=== PATIENT | female | born 2000 | race African-American/Black ===

== ENCOUNTER 2022-07-08 16:11 | Outpatient (CLI) | payer OTHER ==
--- NOTE | 2022-07-08 17:58 | Ultrasound Report ---
PROCEDURE: OB First Trimester w/TV INDICATIONS: POSITIVE PREGANCY TEST OUTSIDE/PRIOR DATING DATA: Last menstrual period (LMP): 04/20/2022,. LMP-based estimated date of delivery (JUAN JOSÉ): 01/25/2023. First dating scan (date and location): Current study, 07/08/2022. Estimated date of delivery (JUAN JOSÉ) from first dating scan: 01/22/2023. TECHNIQUE: Real-time scanning was performed of the fetus and maternal pelvic organs, with image documentation. Endovaginal scanning was also performed to better visualize the fetus and maternal ovaries. COMPARISON: None FINDINGS: Anteverted and anteflexed uterus contains a fundal gestational sac. The cervix is closed a nd measures 4.1 cm in length. There is no subchorionic hemorrhage. Maternal ovaries are normal. Embryo: Mean gestational sac diameter is 4.89 cm corresponding to a 10 week 4 day gestation. Average crown-rump length of the single fetus is 5.03 cm corresponding to an 11 week 5 day gestation. There is detectable cardiac activity at a rate of 157 bpm. IMPRESSION: 1. Single living intrauterine with a gestational age of 11 weeks 5 days and sonographic est imated due date of 01/22/2023. This is in good agreement with the clinically assigned gestational age . Reviewed by: Tawnya Polanco MD on 07/08/2022 5:56 PM PDT Approved by: Tawnya Polanco MD on 07/08/2022 5:56 PM PDT Station ID: [id number]
== END 2022-07-08 16:12 | disposition home or self-care (01) ==
LOC: DI 16:11
PROVIDERS: ATTEND Obstetrics & Gynecology
DX: Z34.91 Encounter for supervision of normal pregnancy, unspecified, first trimester (principal)

== ENCOUNTER 2022-08-12 16:25 | Outpatient (CLI) | payer OTHER ==
[2022-08-15 19:07] LABS: AFP MOM 1.15 (.); AFP VALUE 39.8 ng/mL (.); DIA MOM 0.54 (.); DIA VALUE 73.72 pg/mL (.); DSR (BY AGE) 1 IN 1133 (.); DSR (SECOND TRIMESTER) 1 IN 10000 (.); GEST. AGE ON COLLECTION DATE 16.3 WEEKS (.); HCG MOM 0.41 (.); HCG VALUE 14213 mIU/mL (.); INSULIN DEP DIABETES No (.); MATERNAL AGE AT EDD 21.8 yr (.); MULTIPLE GESTATION No (.); OPEN SPINA BIFIDA RISK 1 IN 10000 (.); RACE Black (.); RESULTS Report (.); TEST RESULTS *Screen Negative* (.); TRISOMY 18 RISK Not increased (.); UE3 MOM 0.64 (.); WEIGHT 186 lbs (.)
== END 2022-08-12 16:26 | disposition home or self-care (01) ==
LOC: LAB 16:25
PROVIDERS: ATTEND Obstetrics & Gynecology
DX: Z34.90 Encounter for supervision of normal pregnancy, unspecified, unspecified trimester (principal)
CPT/HCPCS: 81511

== ENCOUNTER 2022-09-07 16:00 | Outpatient (CLI) | payer OTHER ==
--- NOTE | 2022-09-08 11:09 | Ultrasound Report ---
PROCEDURE: OB Detailed Eval INDICATIONS: SUPERVISION OF OUTSIDE/PRIOR DATING DATA: Last menstrual period (LMP): 04/20/2022. LMP-based estimated date of delivery (JUAN JOSÉ): 01/25/2023. First dating scan (date and location): 07/08/2022. Estimated date of delivery (JUAN JOSÉ) from first dating scan: 01/25/2023. TECHNIQUE: Real-time scanning was performed of the fetus, with image documentation and biometric measurements. Endovaginal scanning: Not performed COMPARISON: 07/08/2022 FINDINGS: Technically challenging exam due to positioning and patient body habitus. General: A single living intrauterine gestation is present. Presentation: Vertex Placenta: Placental position is posterior, without previa. Amniotic fluid index: 10.2 cm, within normal limits for gestational age. heart rate: 152 beats per minute. Maternal cervical canal: 3.2 cm long; normal length is 2.5 cm or more. biometrics: Biparietal diameter: 4.6 cm 19 weeks 6 days Head circumference: 18.5 cm 20 weeks 6 days Abdominal circumference: 13.5 cm 19 weeks 0 days Femur length: 3.0 cm 19 weeks 2 days Estimated gestational age from initial scan: 20 weeks 0 days Composite gestational age from present scan: 19 weeks 4 days Estimated weight and percentile: 286 g, 14th percentile Measurement variability in biometric dating: +/- 10 days from 12-20 weeks gestation, +/- 2 weeks from 20-30 weeks gestation, +/- 3 weeks at 30 weeks gestation or later. Anatomic survey: Neuro: Ventricles are normal at less than 10 mm. Cisterna magna is normal at 3-11 mm. Cerebellum i s normal in size and morphology. Nuchal skin fold: Not well visualized Face: Nose and lips and orbits not well visualized. Unremarkable profile. Spine: Suboptimally visualized. Heart: 4-chambered heart is present, with normal ventricular outflow tracts. Diaphragm: Diaphragm is intact. Stomach: Left-sided stomach is present. Kidneys: No hydronephrosis. Normal is less than 5 mm in 2nd trimester, less than 7 mm in 3rd trimester. Cord: 3 vessel cord has orthotopic insertion. Bladder: Normal in size. Extremities: Upper extremities not well visualized. Lower extremities are unremarkable. IMPRESSION: 1. Single living intrauterine in vertex presentation. 2. Technically challenging exam due to position and maternal body habitus. 3. nose, lips, orbits, spine, and upper extremities are not well visualized or suboptimally vis ualized. Attention on follow-up is recommended. The nuchal fold was also not well visualized. Reviewed by: Wilman Hinds MD on 09/08/2022 11:08 AM PDT Approved by: Wilman Hinds MD on 09/08/2022 11:08 AM PDT Station ID: [id number]
== END 2022-09-07 16:01 | disposition home or self-care (01) ==
LOC: DI 16:00
PROVIDERS: ATTEND Obstetrics & Gynecology
DX: Z34.92 Encounter for supervision of normal pregnancy, unspecified, second trimester (principal)

== ENCOUNTER 2022-09-12 12:05 | Outpatient (CLI) | payer OTHER ==
--- NOTE | 2022-09-12 20:41 | Ultrasound Report ---
PROCEDURE: OB F/U or Repeat INDICATIONS: SUPERVISION OF OUTSIDE/PRIOR DATING DATA: Last menstrual period (LMP): 04/20/2022. LMP-based estimated date of delivery (JUAN JOSÉ): 01/25/2023. First dating scan (date and location): 07/08/2022. Estimated date of delivery (JUAN JOSÉ) from first dating scan: 01/25/2023. TECHNIQUE: Real-time scanning was performed of the fetus, with image documentation and biometric measurements. Endovaginal scanning: Not performed. COMPARISON: 09/07/2022 FINDINGS: General: A single living intrauterine gestation is present. Presentation: Variable Placenta: Placental position is posterior, without previa. Amniotic fluid index: 9.4 cm, which falls within the 4.9 percentile for gestational age. heart rate: 145 beats per minute. Maternal cervical canal: Closed and visibly adequate . biometrics: Estimated gestational age of approximately 20 weeks and 5 days based off previous imaging. Other: intracranial structures, lips, orbit, face and facial profile, cardiac structures, abdom inal structures, pelvic structures, and extremities appear within normal limits. IMPRESSION: Single living intrauterine gestation with estimated gestational age of approximately 20 weeks and 5 d ays. Four-quadrant SANYA measures 5.4 cm which correlates with the 4.9th percentile for gestational age. Rec ommend close clinical surveillance with repeat imaging as needed. Follow-up scan of anatomic structures appear unremarkable. Reviewed by: Markel Jackson MD on 09/12/2022 7:40 PM MELISSA Approved by: Markel Jackson MD on 09/12/2022 7:40 PM MELISSA Station ID: [id number]
== END 2022-09-12 12:06 | disposition home or self-care (01) ==
LOC: DI 12:05
PROVIDERS: ATTEND Obstetrics & Gynecology
DX: Z34.92 Encounter for supervision of normal pregnancy, unspecified, second trimester (principal)

== ENCOUNTER 2022-10-02 12:35 | Emergency (ER) | payer OTHER ==
[2022-10-02 12:54] VITALS: BP 139/79
[2022-10-02] MEDS ORDERED: oxyCODONE 5 MG TABLET PO STA (13:05)
[2022-10-02 13:14] LABS: BILIRUBIN,URINE NEGATIVE (NEGATIVE); GLUCOSE, URINE (UA) NEGATIVE (NEGATIVE); KETONES,URINE (UA) NEGATIVE (NEGATIVE); LEUKOCYTE ESTERASE, URINE NEGATIVE (NEGATIVE); NITRITE,URINE NEGATIVE (NEGATIVE); OCCULT BLOOD,URINE NEGATIVE (NEGATIVE); PH,URINE 8.5 PH (5.0-7.5); PROTEIN,URINE NEGATIVE (NEGATIVE); UROBILINOGEN,URINE 1 (NORMAL) E.U./dL (NORMAL)
[2022-10-02 13:17] LABS: CLARITY,URINE SL. CLOUDY (CLEAR)
[2022-10-02 13:24] LABS: AMORPHOUS SEDIMENT,UR Moderate /LPF; BACTERIA,URINE Few /HPF (None Seen); RBC,URINE None Seen /HPF (0-5); SQUAMOUS EPITHELIAL CELL,UR FEW Squamous (<= Few); WBC,URINE 0-3 /HPF (0-5)
[2022-10-02 13:47] LABS: BASOPHILS % (AUTO) 0.5 %; EOSINOPHILS # (AUTO) 0.1 10^3/uL (0.0-0.7); EOSINOPHILS % (AUTO) 1.5 %; HCT - HEMATOCRIT 33.3 % (37.0-47.0); HGB - HEMOGLOBIN 10.7 g/dL (12.0-16.0); LYMPHOCYTES # (AUTO) 1.6 10^3/uL (1.5-3.5); LYMPHOCYTES % (AUTO) 18.9 %; MEAN CORPUSCULAR HEMOGLOBIN 27.2 pg (27.0-31.0); MEAN CORPUSCULAR HGB CONC 32.1 g/dL (32.0-36.0); MEAN CORPUSCULAR VOLUME 84.5 fL (81.0-99.0); MEAN PLATELET VOLUME 11.2 fL (7.9-10.8); MONOCYTES % (AUTO) 11.6 %; NEUTROPHILS # (AUTO) 5.7 10^3/uL (1.5-6.6); NEUTROPHILS % (AUTO) 66.8 %; PLT - PLATELET COUNT 247 10^3/uL (130-450); RED BLOOD COUNT 3.94 10^6/uL (4.20-5.40); RED CELL DISTRIBUTION WIDTH 13.7 % (12.0-15.0); WHITE BLOOD COUNT 8.6 x10^3/uL (4.8-10.8)
[2022-10-02 14:03] LABS: ALBUMIN 3.8 g/dL (3.2-5.5); ALBUMIN/GLOBULIN RATIO 1.2 (1.0-2.2); BILIRUBIN,TOTAL 0.4 mg/dL (0.2-1.0); CALCIUM 9.4 mg/dL (8.5-10.3); CREATININE 0.6 mg/dL (0.6-1.3); POTASSIUM 3.7 mmol/L (3.5-4.5)
--- NOTE | 2022-10-02 14:12 | ED Physician Documentation ---
History of Present Illness - Stated complaint Stated Complaint: LRQ BACK PX - Chief complaint Chief Complaint: Abd Pain - History obtained from History obtained from: Patient - Additonal information Additional information: 30-year-old female at 5 months gestational age presents by private vehicle for right-sided flank pain for 4 days. Pain is sharp, intermittent, does not radiate. She states she is never felt pain like this before. Denies dysuria, hematuria, contractions, vaginal bleeding, loss of fluids. States she has had no complications with this . Review of Systems Constitutional: denies: Fever, Chills Cardiac: denies: Chest pain / pressure, Palpitations, Calf pain GI: denies: Abdominal Pain, Nausea, Vomiting Musculoskeletal: denies: Neck pain, Back pain, Extremity pain Neurologic: denies: Generalized weakness, Focal weakness, Numbness PD PAST MEDICAL HISTORY - Present Medications Home Medications: Ambulatory Orders Medication Instructions Recorded Confirmed No Known Home Medications 10/02/22 10/02/22 - Allergies Allergies/Adverse Reactions: Allergies Allergy/AdvReac Type Severity Reaction Status Date / Time No Known Drug Allergies Allergy Verified 10/02/22 12:46 PD ED PE NORMAL - Vitals Vital signs reviewed: Yes - General General: Alert and oriented X 3, No acute distress, Well developed/nourished - HEENT HEENT: Atraumatic - Neck Neck: Supple, no meningeal sign - Cardiac Cardiac: RRR, No murmur, Strong equal pulses - Abdomen Abdomen: Soft, Non tender, Non distended, Other (appropriate for gestational age) - Back Back: Other (R sided paraspinal tenderness) - Derm Derm: Normal color, Warm and dry, No rash - Extremities Extremities: No deformity, No tenderness to palpate, Normal ROM s pain - Neuro Neuro: Alert and oriented X 3, 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, No motor deficit, Normal speech - Psych Psych: Normal mood, Normal affect Results - Vitals Vitals: Oxygen O2 Source Room air - Labs Labs: Laboratory Tests 10/02/22 10/02/22 10/02/22 13:05 13:40 13:40 WBC 8.6 RBC 3.94 L Hgb 10.7 L Hct 33.3 L MCV 84.5 MCH 27.2 MCHC 32.1 RDW 13.7 Plt Count 247 MPV 11.2 H Neut # (Auto) 5.7 Lymph # (Auto) 1.6 Turner # (Auto) 1.0 Eos # (Auto) 0.1 Baso # (Auto) 0.0 Absolute Nucleated RBC 0.00 Nucleated RBC % 0.0 Sodium 137 Potassium 3.7 Chloride 108 Carbon Dioxide 25 Anion Gap 4.0 L BUN 7 Creatinine 0.6 Estimated GFR (MDRD) 153 Glucose 77 Calcium 9.4 Total Bilirubin 0.4 AST 12 ALT 13 Alkaline Phosphatase 65 Total Protein 7.0 Albumin 3.8 Globulin 3.2 Albumin/Globulin Ratio 1.2 Urine Color YELLOW Urine Clarity SL. CLOUDY Urine pH 8.5 H Ur Specific [place] 1.015 Urine Protein NEGATIVE Urine Glucose (UA) NEGATIVE Urine Ketones NEGATIVE Urine Occult Blood NEGATIVE Urine Nitrite NEGATIVE Urine Bilirubin NEGATIVE Urine Urobilinogen 1 (NORMAL) Ur Leukocyte Esterase NEGATIVE Urine RBC None Seen Urine WBC 0-3 Ur Squamous Epith Cells FEW Squamous Amorphous Sediment Moderate Urine Bacteria Few Ur Microscopic Review INDICATED Urine Culture Comments NOT INDICATED PD Medical Decision Making - ED course Complexity details: reviewed results, re-evaluated patient, considered differential, d/w patient, d/w family ED course: Well-appearing patient with right-sided back/flank pain. Cannot obtain CT scan due to patient . Will obtain basic labs, retroperitoneal ultrasound, urinalysis. Patient declined medications offered for pain. Laboratory work is reviewed, unremarkable. Urinalysis shows no evidence of UTI or blood. Retroperitoneal ultrasound shows no abnormalities within the kidneys, heart tones 140s. Patient reassessed, resting comfortably in ED bed. Informed patient and partner at bedside of all lab and imaging results, counseled I do not know the exact cause of her flank pain but it does not appear to be a stone, and baby seems to be doing well. 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 Departure - Departure Disposition: 01 Home, Self Care Clinical Impression: Back pain Condition: Stable Instructions: ED Neck Back Pain General Forms: PCP List Discharge Date/Time: 10/02/22 14:23
--- NOTE | 2022-10-02 14:43 | Ultrasound Report ---
PROCEDURE: Retroperitoneal INDICATIONS: R FLANK PAIN, 5 MO TECHNIQUE: Real-time scanning was performed of the retroperitoneal organs, with image documentation. COMPARISON: None. FINDINGS: Kidneys: Kidneys are normal in size. Right kidney measures 10.3 cm long; left kidney measures 10.4 cm long. Right renal cortical thickness is 0.9 cm; left renal cortical thickness is 1.2 cm. No abdoul d masses, hydronephrosis, or nephrolithiasis. Bladder: Not evaluated. Miscellaneous: No free abdominal fluid. A living intrauterine is noted, with a heart rate of 141 bpm IMPRESSION: 1. Living intrauterine . 2. Unremarkable kidneys. No hydronephrosis. No stones. Reviewed by: Isidro Willoughby MD on 10/02/2022 2:41 PM PDT Approved by: Isidro Willoughby MD on 10/02/2022 2:41 PM PDT Station ID: [id number]
== END 2022-10-02 14:23 | disposition home or self-care (01) ==
LOC: ED 12:35
DX: O99.891 Other specified diseases and conditions complicating pregnancy (principal); R10.9 Unspecified abdominal pain; Z3A.00 Weeks of gestation of pregnancy not specified
CPT/HCPCS: 36415; 80053; 81001; 81003; 85025; 87086; 99283; 99284

== ENCOUNTER 2022-10-05 08:57 | Outpatient (CLI) | payer OTHER ==
[2022-10-05 10:08] LABS: HCT - HEMATOCRIT 32.4 % (37.0-47.0); HGB - HEMOGLOBIN 10.4 g/dL (12.0-16.0); MEAN CORPUSCULAR HGB CONC 32.1 g/dL (32.0-36.0); MEAN CORPUSCULAR VOLUME 84.2 fL (81.0-99.0); MEAN PLATELET VOLUME 10.8 fL (7.9-10.8); RED BLOOD COUNT 3.85 10^6/uL (4.20-5.40); RED CELL DISTRIBUTION WIDTH 13.4 % (12.0-15.0); WHITE BLOOD COUNT 9.4 x10^3/uL (4.8-10.8)
== END 2022-10-05 08:58 | disposition home or self-care (01) ==
LOC: LAB 08:57
PROVIDERS: ATTEND Obstetrics & Gynecology
DX: Z34.90 Encounter for supervision of normal pregnancy, unspecified, unspecified trimester (principal)
CPT/HCPCS: 36415; 82950; 85027

== ENCOUNTER 2022-10-08 08:00 | Outpatient (CLI) | payer OTHER ==
[2022-10-08 15:47] LABS: BILIRUBIN,URINE NEGATIVE (NEGATIVE); GLUCOSE, URINE (UA) NEGATIVE (NEGATIVE); KETONES,URINE (UA) NEGATIVE (NEGATIVE); LEUKOCYTE ESTERASE, URINE NEGATIVE (NEGATIVE); NITRITE,URINE NEGATIVE (NEGATIVE); OCCULT BLOOD,URINE NEGATIVE (NEGATIVE); PH,URINE 7.5 PH (5.0-7.5); PROTEIN,URINE NEGATIVE (NEGATIVE); UROBILINOGEN,URINE 0.2 (NORMAL) E.U./dL (NORMAL)
[2022-10-08 15:48] LABS: CLARITY,URINE CLEAR (CLEAR)
[2022-10-08 16:05] LABS: BACTERIA,URINE Few /HPF (None Seen); RBC,URINE None Seen /HPF (0-5); SQUAMOUS EPITHELIAL CELL,UR FEW Squamous (<= Few); WBC,URINE 0-3 /HPF (0-5)
== END 2022-10-08 23:59 | disposition home or self-care (01) ==
LOC: LAB.WC 08:00
PROVIDERS: ATTEND Obstetrics & Gynecology
DX: R10.9 Unspecified abdominal pain (principal)
CPT/HCPCS: 81001; 87086

== ENCOUNTER 2022-11-04 16:28 | Outpatient (CLI) | payer OTHER ==
[2022-11-04 16:45] LABS: HCT - HEMATOCRIT 29.9 % (37.0-47.0); HGB - HEMOGLOBIN 9.7 g/dL (12.0-16.0); MEAN CORPUSCULAR HEMOGLOBIN 26.4 pg (27.0-31.0); MEAN CORPUSCULAR HGB CONC 32.4 g/dL (32.0-36.0); MEAN CORPUSCULAR VOLUME 81.3 fL (81.0-99.0); MEAN PLATELET VOLUME 10.8 fL (7.9-10.8); RED BLOOD COUNT 3.68 10^6/uL (4.20-5.40); RED CELL DISTRIBUTION WIDTH 12.7 % (12.0-15.0); WHITE BLOOD COUNT 10.2 x10^3/uL (4.8-10.8)
[2022-11-04 17:12] LABS: ALBUMIN 3.8 g/dL (3.2-5.5); ALBUMIN/GLOBULIN RATIO 1.2 (1.0-2.2); BILIRUBIN,TOTAL 0.3 mg/dL (0.2-1.0); CALCIUM 9.2 mg/dL (8.5-10.3); CREATININE 0.6 mg/dL (0.6-1.3); POTASSIUM 3.5 mmol/L (3.5-4.5); TOTAL PROTEIN 6.9 g/dL (6.4-8.9)
[2022-11-04 17:28] LABS: CREATININE,URINE 164.1 mg/dL; PROTEIN/CREATININE RATIO,URINE 0.1 (<=0.2)
== END 2022-11-04 16:29 | disposition home or self-care (01) ==
LOC: LAB 16:28
PROVIDERS: ATTEND Obstetrics & Gynecology
DX: R03.0 Elevated blood-pressure reading, without diagnosis of hypertension (principal)
CPT/HCPCS: 36415; 80053; 82570; 84156; 85027

== ENCOUNTER 2022-11-12 07:38 | Outpatient (CLI) | payer OTHER ==
--- NOTE | 2022-11-12 12:58 | Ultrasound Report ---
PROCEDURE: OB F/U or Repeat INDICATIONS: OBESITY, OBESITY COMPLICATING OUTSIDE/PRIOR DATING DATA: Last menstrual period (LMP): 04/20/2022. LMP-based estimated date of delivery (JUAN JOSÉ): 01/25/2023. First dating scan (date and location): 07/08/2022. Estimated date of delivery (JUAN JOSÉ) from first dating scan: 01/25/2023. The below data below was generated using the working JUAN JOSÉ of 01/25/2023 TECHNIQUE: Real-time scanning was performed of the fetus, with image documentation and biometric measurements. Endovaginal scanning: Not performed. COMPARISON: OB ultrasound 09/12/2022 FINDINGS: General: A single living intrauterine gestation is present. Presentation: Cephalic Placenta: Placental position is posterior, without previa. Amniotic fluid index: 9.9 cm, 8th percentile for gestational age. Largest vertical fluid pocket is 3.5 cm. heart rate: 145 beats per minute. Maternal cervical canal: 3.3 cm long; normal length is 2.5 cm or more. biometrics: Biparietal diameter: 7.0 cm, 28 weeks 1 day Head circumference: 26.8 cm, 29 weeks 1 day Abdominal circumference: 24.2 cm, 28 weeks 3 days Femur length: 5.3 cm, 28 weeks 2 days Estimated gestational age from initial scan: 29 weeks 3 days Composite gestational age from present scan: 28 weeks 4 days Estimated weight and percentile: 1227 g, 11th percentile Measurement variability in biometric dating: +/- 10 days from 12-20 weeks gestation, +/- 2 weeks from 20-30 weeks gestation, +/- 3 weeks at 30 weeks gestation or more. Other: Not applicable. IMPRESSION: 1.Single live intrauterine with interval growth. Estimated weight is at the 11th perc entile for gestational age. 2.Amniotic fluid index is 9.9 cm, 8th percentile for gestational age. Reviewed by: Wilman Paredes MD on 11/12/2022 12:56 PM PDT Approved by: Wilman Paredes MD on 11/12/2022 12:56 PM PDT Station ID: [id number]
== END 2022-11-12 07:39 | disposition home or self-care (01) ==
LOC: DI 07:38
PROVIDERS: ATTEND Obstetrics & Gynecology
DX: O99.213 Obesity complicating pregnancy, third trimester (principal); Z3A.28 28 weeks gestation of pregnancy

== ENCOUNTER 2022-12-24 08:00 | Outpatient (CLI) | payer OTHER ==
[2022-12-24 10:08] LABS: PROTEIN/CREATININE RATIO,URINE 0.1 (<=0.2)
== END 2022-12-24 23:59 | disposition home or self-care (01) ==
LOC: LAB.WC 08:00
PROVIDERS: ATTEND Nurse Practitioner
DX: O09.93 Supervision of high risk pregnancy, unspecified, third trimester (principal)
CPT/HCPCS: 82570; 84156

== ENCOUNTER 2022-12-24 09:00 | Outpatient (CLI) | payer OTHER ==
[2022-12-24 09:26] VITALS: O2SAT 100
[2022-12-24 10:17] LABS: BASOPHILS % (AUTO) 0.5 %; EOSINOPHILS # (AUTO) 0.1 10^3/uL (0.0-0.7); EOSINOPHILS % (AUTO) 0.8 %; HCT - HEMATOCRIT 29.8 % (37.0-47.0); HGB - HEMOGLOBIN 9.4 g/dL (12.0-16.0); LYMPHOCYTES # (AUTO) 1.6 10^3/uL (1.5-3.5); MEAN CORPUSCULAR HEMOGLOBIN 24.5 pg (27.0-31.0); MEAN CORPUSCULAR HGB CONC 31.5 g/dL (32.0-36.0); MEAN CORPUSCULAR VOLUME 77.8 fL (81.0-99.0); MEAN PLATELET VOLUME 11.2 fL (7.9-10.8); MONOCYTES # (AUTO) 0.7 10^3/uL (0.0-1.0); MONOCYTES % (AUTO) 9.4 %; PLT - PLATELET COUNT 220 10^3/uL (130-450); RED BLOOD COUNT 3.83 10^6/uL (4.20-5.40); RED CELL DISTRIBUTION WIDTH 14.8 % (12.0-15.0); WHITE BLOOD COUNT 7.5 x10^3/uL (4.8-10.8)
[2022-12-24 10:21] LABS: ALBUMIN 3.6 g/dL (3.2-5.5); ALBUMIN/GLOBULIN RATIO 1.2 (1.0-2.2); BILIRUBIN,TOTAL 0.4 mg/dL (0.2-1.0); CALCIUM 9.3 mg/dL (8.5-10.3); CREATININE 0.6 mg/dL (0.6-1.3); POTASSIUM 3.7 mmol/L (3.5-4.5); TOTAL PROTEIN 6.6 g/dL (6.4-8.9); URIC ACID 4.5 mg/dL (2.3-6.6)
[2022-12-24 10:22] VITALS: BP 107/64
--- NOTE | 2022-12-24 11:09 | PROVIDER PROGRESS NOTE ---
- HPI Chief Complaint: Hypertension/PIH (Patient is a 22-year-old presenting from the clinic at 35 weeks and 3 days for evaluation with elevated blood pressure. She denies headache, changes in vision, right upper quadrant pain. She is not on medications for hypertension. Positive movement. Denies contractions, vaginal bleed) Current : Vital Signs Temperature 98.2 F 12/24/22 09:10 Heart Rate 92 12/24/22 09:10 Respiratory Rate 17 12/24/22 09:10 Blood Pressure 135/62 H 12/24/22 09:10 O2 Saturation 100 12/24/22 09:10 Temperature 98.2 F 12/24/22 09:39 Heart Rate 103 H 12/24/22 09:19 Respiratory Rate 17 12/24/22 09:10 Blood Pressure 107/64 12/24/22 10:15 O2 Saturation 100 12/24/22 09:10 If not protocol: Oxygen Flow, liters/minute - Exam Gen: NAD Pulm: CTA bilaterally Cardiac: RRR Abdomen: Gravid, nontender Ext: no edema Neuro: 1+ DTRs, no clonus pre-eclamptic labwork within normal limits - Procedures NST Procedure: NST Procedure Start Time 16:21 Stop Time 17:02 35+3, gestational hypertension 140, moderate variability, +accels, no decels Reactive NST - Plan Plan: Patient was counseled on signs and symptoms of preeclampsia. She was counseled to return for headache, changes in vision, right upper quadrant pain, increased lower extremity edema, or any other concerns. Patient was also given labor precautions. She has follow-up as outpatient.
== END 2022-12-24 10:30 | disposition home or self-care (01) ==
LOC: WFO 09:00 → FBP 09:02 → WFO 10:30
PROVIDERS: ATTEND Obstetrics & Gynecology Obstetrics
DX: O13.3 Gestational [pregnancy-induced] hypertension without significant proteinuria, third trimester (principal); O09.93 Supervision of high risk pregnancy, unspecified, third trimester; Z3A.35 35 weeks gestation of pregnancy
CPT/HCPCS: 36415; 59025; 80053; 82570; 83615; 84156; 84550; 85025

== ENCOUNTER 2022-12-29 08:31 | Outpatient (CLI) | payer OTHER ==
--- NOTE | 2022-12-29 08:53 | PROCEDURE REPORT ---
- HPI Diagnosis/Indication for NST: Gestational Hypertension - NST Procedure NST Procedure Start Time 08:41 Stop Time 09:01 - Results and Plan Plan: Patient is a 22-year-old G1, P0 at 36 weeks 0 days gestation here for scheduled NST. NST Performed 12/29/2022 NST Read 12/29/2022 FHT: 135 bpm baseline, moderate variability, accelerations present, no deceler ations. Reactive NST [place]: Quiescent Diagnosis Gestational hypertension 36 weeks gestation Continue with twice-weekly NST.
[2022-12-29 09:01] VITALS: BP 129/75
== END 2022-12-29 09:05 | disposition home or self-care (01) ==
LOC: FBP 08:31 → DI 08:31
PROVIDERS: ATTEND Obstetrics & Gynecology
DX: O13.3 Gestational [pregnancy-induced] hypertension without significant proteinuria, third trimester (principal); O99.213 Obesity complicating pregnancy, third trimester; Z3A.36 36 weeks gestation of pregnancy
CPT/HCPCS: 59025

== ENCOUNTER 2022-12-31 08:00 | Outpatient (CLI) | payer OTHER | END 2022-12-31 23:59 | disposition home or self-care (01) | LOC: LAB.WC 08:00 | PROVIDERS: ATTEND Obstetrics & Gynecology | DX: O09.93 Supervision of high risk pregnancy, unspecified, third trimester (principal); O13.3 Gestational [pregnancy-induced] hypertension without significant proteinuria, third trimester | CPT/HCPCS: 87797 ==

== ENCOUNTER 2022-12-31 08:11 | Outpatient (CLI) | payer OTHER ==
--- NOTE | 2022-12-31 08:26 | PROCEDURE REPORT ---
- NST Procedure NST Procedure Start Time 08:41 Stop Time 09:01 - Results and Plan Plan: Patient is a 22-year-old G1, P0 at 36 weeks gestation here for scheduled NST. NST Performed 12/31/2022 NST Read 12/31/2022 FHT: 140 bpm baseline, moderate variability, accelerations present, no decelerations Reactive NST [place]: Quiescent Diagnosis 36 weeks gestation Gestational hypertension Continue with twice-weekly NST.
[2022-12-31 08:35] VITALS: BP 140/92; O2SAT 100
== END 2022-12-31 09:10 | disposition home or self-care (01) ==
LOC: WFO 08:11 → FBP 08:13 → WFO 09:10
PROVIDERS: ATTEND Obstetrics & Gynecology
DX: O13.3 Gestational [pregnancy-induced] hypertension without significant proteinuria, third trimester (principal); O99.213 Obesity complicating pregnancy, third trimester; Z3A.36 36 weeks gestation of pregnancy
CPT/HCPCS: 59025

== ENCOUNTER 2023-01-01 18:20 | Outpatient (CLI) | payer OTHER ==
--- NOTE | 2023-01-03 14:49 | Ultrasound Report ---
PROCEDURE: OB Biophysical Profile INDICATIONS: OBESITY OUTSIDE/PRIOR DATING DATA: Last menstrual period (LMP): 04/20/2022. LMP-based estimated date of delivery (JUAN JOSÉ): 01/25/2023. First dating scan (date and location): 07/08/2022, Dr. Szymanski office. Estimated date of delivery (JUAN JSOÉ) from first dating scan: 01/25/2023. TECHNIQUE: Real-time scanning was performed of the fetus, with image documentation and biometric mauricio surements. Biophysical profile was also obtained. COMPARISON: OB ultrasound dated 12/25/2022, 11/12/2022, 09/12/2022 FINDINGS: General: A single living intrauterine gestation is present. Presentation: Vertex Placenta: Placental position is anterior, without previa. Amniotic fluid index: 13.4 cm, 47.5 for gestational age. heart rate: 133 beats per minute. Maternal cervical canal: Not imaged. biometrics: Biparietal diameter: 8.8 cm, 35 weeks, 5 days. 35.5% Head circumference: 32.6 cm, 37 weeks, 0 days. 32.0% Abdominal circumference: 39.9 cm, 36 weeks 6 days. 70.2% Femur length: 6.87 cm, 35 weeks 2 days. 16.6% Estimated gestational age from initial scan: 36 weeks, 4 days Composite gestational age from present scan: 36 weeks, 2 days Estimated weight and percentile: 2912.4 g, 47.4% Measurement variability in biometric dating: +/- 10 days from 12-20 weeks gestation, +/- 2 weeks from 20-30 weeks gestation, +/- 3 weeks at 30 weeks gestation or later. Biophysical profile: Tone: 2 points. Movement: 2 points. Respiration: 0 points. Largest pocket of fluid: 2 points. Umbilical artery Doppler: 2.39, 2.21, 2.77 IMPRESSION: 1. Single live intrauterine gestation with a composite gestational age of 36 weeks, 2 days which is c oncordant with dates by initial scan. 2. Estimated weight of 47.4%. 3. 68 biophysical profile and normal umbilical artery Doppler Reviewed by: Lu Howe MD on 01/03/2023 2:48 PM PST Approved by: Lu Howe MD on 01/03/2023 2:48 PM PST Station ID: [id number]
--- NOTE | 2023-01-03 14:51 | Ultrasound Report ---
PROCEDURE: OB Biophysical Profile INDICATIONS: OBESITY OUTSIDE/PRIOR DATING DATA: Last menstrual period (LMP): 04/20/2022. LMP-based estimated date of delivery (JUAN JOSÉ): 01/25/2023. First dating scan (date and location): 07/08/2022, Dr. Szymanski office. Estimated date of delivery (JUAN JOSÉ) from first dating scan: 01/25/2023. TECHNIQUE: Real-time scanning was performed of the fetus, with image documentation and biometric mauricio surements. Biophysical profile was also obtained. COMPARISON: OB ultrasound dated 12/25/2022, 11/12/2022, 09/12/2022 FINDINGS: General: A single living intrauterine gestation is present. Presentation: Vertex Placenta: Placental position is anterior, without previa. Amniotic fluid index: 13.4 cm, 47.5 for gestational age. heart rate: 133 beats per minute. Maternal cervical canal: Not imaged. biometrics: Biparietal diameter: 8.8 cm, 35 weeks, 5 days. 35.5% Head circumference: 32.6 cm, 37 weeks, 0 days. 32.0% Abdominal circumference: 39.9 cm, 36 weeks 6 days. 70.2% Femur length: 6.87 cm, 35 weeks 2 days. 16.6% Estimated gestational age from initial scan: 36 weeks, 4 days Composite gestational age from present scan: 36 weeks, 2 days Estimated weight and percentile: 2912.4 g, 47.4% Measurement variability in biometric dating: +/- 10 days from 12-20 weeks gestation, +/- 2 weeks from 20-30 weeks gestation, +/- 3 weeks at 30 weeks gestation or later. Biophysical profile: Tone: 2 points. Movement: 2 points. Respiration: 0 points. Largest pocket of fluid: 2 points. Umbilical artery Doppler: 2.39, 2.21, 2.77 IMPRESSION: 1. Single live intrauterine gestation with a composite gestational age of 36 weeks, 2 days which is c oncordant with dates by initial scan. 2. Estimated weight of 47.4%. 3. 68 biophysical profile and normal umbilical artery Doppler Reviewed by: Lu Howe MD on 01/03/2023 2:50 PM PST Approved by: Lu Howe MD on 01/03/2023 2:50 PM PST Station ID: [id number]
== END 2023-01-01 18:21 | disposition home or self-care (01) ==
LOC: DI 18:20
PROVIDERS: ATTEND Obstetrics & Gynecology
DX: O99.213 Obesity complicating pregnancy, third trimester (principal); O13.3 Gestational [pregnancy-induced] hypertension without significant proteinuria, third trimester; Z3A.36 36 weeks gestation of pregnancy

== ENCOUNTER 2023-01-02 17:39 | Inpatient (IN) | payer OTHER ==
[2023-01-02 18:43] LABS: BASOPHILS % (AUTO) 0.4 %; EOSINOPHILS # (AUTO) 0.1 10^3/uL (0.0-0.7); EOSINOPHILS % (AUTO) 0.8 %; HCT - HEMATOCRIT 32.1 % (37.0-47.0); HGB - HEMOGLOBIN 9.8 g/dL (12.0-16.0); LYMPHOCYTES % (AUTO) 20.6 %; MEAN CORPUSCULAR HEMOGLOBIN 24.3 pg (27.0-31.0); MEAN CORPUSCULAR HGB CONC 30.5 g/dL (32.0-36.0); MEAN CORPUSCULAR VOLUME 79.7 fL (81.0-99.0); MEAN PLATELET VOLUME 11.1 fL (7.9-10.8); MONOCYTES # (AUTO) 0.9 10^3/uL (0.0-1.0); MONOCYTES % (AUTO) 9.4 %; NEUTROPHILS # (AUTO) 6.7 10^3/uL (1.5-6.6); NEUTROPHILS % (AUTO) 68.5 %; PLT - PLATELET COUNT 235 10^3/uL (130-450); RED BLOOD COUNT 4.03 10^6/uL (4.20-5.40); RED CELL DISTRIBUTION WIDTH 15.2 % (12.0-15.0); WHITE BLOOD COUNT 9.7 x10^3/uL (4.8-10.8)
[2023-01-02 18:57] LABS: CREATININE,URINE 132.8 mg/dL; PROTEIN/CREATININE RATIO,URINE 0.1 (<=0.2)
[2023-01-02 18:59] LABS: ALBUMIN 3.9 g/dL (3.2-5.5); ALBUMIN/GLOBULIN RATIO 1.1 (1.0-2.2); BILIRUBIN,TOTAL 0.4 mg/dL (0.2-1.0); CALCIUM 9.5 mg/dL (8.5-10.3); CREATININE 0.5 mg/dL (0.6-1.3); POTASSIUM 3.8 mmol/L (3.5-4.5); TOTAL PROTEIN 7.3 g/dL (6.4-8.9); URIC ACID 4.5 mg/dL (2.3-6.6)
[2023-01-02] MEDS ORDERED: LABETALOL 20 MG/4 ML SYRINGE IVP PRN ×3 (23:09)
[2023-01-02] MEDS ORDERED: SODIUM CHLORIDE FLUSH 0.9% 10 ML SYRINGE IVP PRN (23:09)
[2023-01-02] MEDS ORDERED: hydrALAZINE INJ 20 MG/ML VIAL IVP PRN ×2 (23:09)
[2023-01-02] MEDS ORDERED: NIFEdipine 10 MG CAPSULE PO PRN (23:09)
--- NOTE | 2023-01-02 23:16 | PROVIDER PROGRESS NOTE ---
- HPI Chief Complaint: Hypertension/PIH Current : Current EDU 01/25/23 Gestation 36 Weeks and 5 Days 1 Para 0 Vital Signs Temperature 97.9 F 01/02/23 17:53 Heart Rate 91 01/02/23 17:53 Respiratory Rate 16 01/02/23 17:53 Blood Pressure 151/85 H 01/02/23 17:53 Temperature 97.9 F 01/02/23 17:53 Heart Rate 97 01/02/23 19:59 Respiratory Rate 16 01/02/23 17:53 Blood Pressure 132/72 H 01/02/23 19:59 O2 Saturation If not protocol: Oxygen Flow, liters/minute - Exam Pt presented because she "didn't feel right" had elevated BP x 1 in triage and h/o gestational HTN wherein she frequently has elevated BP in clinic, and are normal when she is sent to the hospital / does NST. she also checks her BP at home -- usually it is below 140 systolic and today have been "in the 140s" - Procedures OB Procedure Performed: NST NST Procedure: NST Procedure Start Date 01/02/23 Start Time 17:54 Stop Time 18:25 Vibroacoustic Stimulation Used No Patient States Movement Yes Service Date of procedure: 01/02/23 Procedure Details: NST: 140 mod alicia + A cells no D cells, reactive. Findings: Pt had one elevated BP on presentation and then wnl. FWB - cat 1 will observe her as she also reports that her BP at home are more elevated today than they had been in the past, and she "felt off" will collect 24h urine labs today wnl - Plan Plan: observe for labile BP and 24h urine if severe BP or SxS preEclampsia, will move towards IOL.
[2023-01-02] MEDS ORDERED: SODIUM CHLORIDE FLUSH 0.9% 10 ML SYRINGE IVP SCH (23:45)
[2023-01-03 07:57] VITALS: O2SAT 100
--- NOTE | 2023-01-03 12:55 | HISTORY & PHYSICAL EXAMINATION ---
Admit History - Visit Reason Visit Reason: Other - : 1 Parity: 0 Premature: 0 Ectopic: 0 : 0 Care: positive: [facility] Risk/History: positive: induced HTN Complications This : positive: induced HTN Smoking Status: Never smoker - Mother's Labs Mother's Blood Type: positive: A Mother's RH: positive: Positive GBS: positive: Group B Step Negative - Other Maternal History Other Maternal History: LMP: 04/20/22 JUAN JOSÉ by LMP: 01/25/23 US: 01/22/2023 Final JUAN JOSÉ: 01/25/2023 Pre- Weight:192.6 BMI: 35.35 G1 FOB: Prashanth, in the [place], sea duty, not at risk of deployment for some months her mom (and soon his mom) is here and staying until april. Problems: 1Obesity Elevated blood pressure: Elevated at 11 weeks. Again at 28 and 34 weeks. No symptoms of PreE. Labs normal. BP non-severe. 37 to 39 week induction, depending on labs, bps. not on aspirin. Not on meds. Anemia: Recent H/H 9.7/29.9. ferritin 5. last 33% Blood type: A+ Antibody: negative CBC: PLT 27.9 HCT 37.3 HGB 12.3 RUB: immune VZV: immune HBsAg: negative HepC: N-R RPR/AB-EIA: N-R HIV: N-R PAP: never GC/CT: obtained 07/10/2022 negative HSV: denies self and parter Genetic testin/14 QUAD- NEGATIVE Covid: 1st set Flu: 11/04/2022 FAS: 09/12 Placenta: Posterior Cord: 3vessel SANYA: 10.2cm EFW: 286g/ 14th%tile 50gm OGCT: 103 TDAP:11/04/2022 Breast Pump:11/04 3rd .4/32.4 PLT 241 11/04 CBC 9.7/29.9 plt 269 ULS 11/12/22 baby 11th%ile, SANYA 9 biophysical profile 12/25 SANYA 9.9. GBS: negative PMH: denies PSH: denies POB: G1 PGYN: no h/o abnormal pap no h/o STDs no h/o problems with ovaries or uterus Meds: PNV, All: NKDA Soc: neg x3, lives with her FOB in the [place] and her mom is visiting. Fam: unremarkable Elevated BP, though none in severe range. NAD Conjunctiva pink, pale sclera +S1, S2, CTAB, no increased work of breathing Abd soft, NT, ND, visibly gravid at term EFM: 140mod alicia + A cells no D cells, reactive [place]: rare ctx Cx: deferred. Ext: neg CCE - HPI Current EDU 01/25/23 Gestation 36 Weeks and 6 Days 1 Para 0 Vital Signs Temperature 97.9 F 01/02/23 17:53 Heart Rate 91 01/02/23 17:53 Respiratory Rate 16 01/02/23 17:53 Blood Pressure 151/85 H 01/02/23 17:53 Temperature 98.6 F 01/03/23 07:53 Heart Rate 100 01/03/23 10:30 Respiratory Rate 17 01/03/23 10:30 Blood Pressure 137/75 H 01/03/23 10:30 O2 Saturation 100 01/03/23 10:30 If not protocol: Oxygen Flow, liters/minute - NST Procedure NST Procedure Start Date 01/03/23 Start Time 11:00 Stop Time 11:20 Vibroacoustic Stimulation Used No Patient States Movement Yes Meds/Allgy - Home Medications Home Medications: Ambulatory Orders Medication Instructions Recorded Confirmed No Known Home Medications 10/02/22 10/02/22 - Allergies Allergies/Adverse Reactions: Allergies Allergy/AdvReac Type Severity Reaction Status Date / Time No Known Drug Allergies Allergy Verified 10/02/22 12:46 Physical - Abdominal Exam Vital Signs: Temp Pulse Resp BP Pulse Ox O2 Flow Rate 98.6 F 100 17 137/75 H 100 01/03/23 07:53 01/03/23 10:30 01/03/23 10:30 01/03/23 10:30 01/03/23 10:30 Plan for Labor - Plan For Labor I expect patient to be DC'd or transferred within 96 hours.: No Plan for Labor: cHTN / gHTN -- f/u 24h urine -- if >300, will begin IOL with miso -- if <300, will begin IOL with miso at 37w, which occurs at midnight tonight FWB -- cat 1, continue NSTs until IOL Admit with routine admission orders at midnight and, GBS negative
[2023-01-03] MEDS ORDERED: OXYTOCIN 10 UNIT/ML VIAL IM PRN (13:54)
[2023-01-03] MEDS ORDERED: TRANEXAMIC ACID IN NACL 1,000 MG/100 ML BAG IV PRN (13:54)
[2023-01-03] MEDS ORDERED: miSOPROStoL 200 MCG TABLET BC PRN (13:54)
[2023-01-03] MEDS ORDERED: OXYTOCIN/SODIUM CHLORIDE 500 ML IV PRN (13:54)
[2023-01-03] MEDS ORDERED: CARBOPROST TROMETHAMINE 250 MCG/ML AMP IM PRN (13:54)
[2023-01-03] MEDS ORDERED: SODIUM CHLORIDE FLUSH 0.9% 10 ML SYRINGE IVP PRN (13:54)
[2023-01-03] MEDS ORDERED: miSOPROStoL 200 MCG TABLET PR PRN (13:54)
[2023-01-03] MEDS ORDERED: fentaNYL 100 MCG/2 ML VIAL IVP PRN (13:54)
[2023-01-03] MEDS ORDERED: METHYLERGONOVINE 0.2 MG/ML VIAL IM PRN (13:54)
[2023-01-03] MEDS ORDERED: TERBUTALINE 1 MG/ML VIAL SUBQ PRN (13:54)
[2023-01-03] MEDS ORDERED: lidocaine 1% 20 ML MDV ID PRN (13:54)
[2023-01-03] MEDS ORDERED: SODIUM CHLORIDE FLUSH 0.9% 10 ML SYRINGE IVP SCH (14:00)
[2023-01-03 18:45] LABS: TOTAL PROTEIN,URINE TIMED 12 mg/dL
[2023-01-03 19:01] LABS: TOTAL PROTEIN 24HR,URINE 180 mg/24hr (40-150); TOTAL VOLUME 24HRS,URINE 1500 mL
[2023-01-04] MEDS ORDERED: miSOPROStoL 100 MCG TABLET VG SCH
[2023-01-04] MEDS: miSOPROStoL 100 MCG TABLET BC SCH ×5 (00:31→18:10)
--- NOTE | 2023-01-04 19:20 | PROVIDER PROGRESS NOTE ---
Labor Progress Note - Uterine Monitoring Uterine Monitoring Mode: positive: External toco : irregular Contraction Intensity: positive: Mild Uterine Resting Tone: positive: Soft - Monitoring Monitor Mode: positive: External ultrasound Heart Rate Variability: positive: Moderate (6-25 bmp) Accelerations: positive: Present, 15x15, Present with movement Decelerations: positive: None Strip Review: positive: Category I - Vaginal Exam Dilation (in cm): 3 Effacement (%): 80 Station: -2 Cervical Position: Midposition - Labor Progress Note Labor Progress Note/Additional Text: Patient seen and examined at 5 pm. still pretty comfortable. really does not want an epidural or pitocin. no headache. no nausea or vomiting. no abdominal pain. A/P term at 37 weeks. htn being induced. bps were good and then after I saw patient were up to 150s/80s. I talked with patient about pitocin and recommended that we start that and then she agreed but then did not feel comfortable with that and wanted to have another miso instead. that was placed around 5 pm and I will reassess her at 9 pm and go from there.
[2023-01-04 21:51] LABS: MEAN CORPUSCULAR HEMOGLOBIN 24.4 pg (27.0-31.0); MEAN CORPUSCULAR HGB CONC 31.3 g/dL (32.0-36.0); MEAN CORPUSCULAR VOLUME 78.2 fL (81.0-99.0); RED BLOOD COUNT 4.09 10^6/uL (4.20-5.40); RED CELL DISTRIBUTION WIDTH 15.3 % (12.0-15.0); WHITE BLOOD COUNT 10.9 x10^3/uL (4.8-10.8)
[2023-01-04 22:05] LABS: CREATININE 0.6 mg/dL (0.6-1.3); URIC ACID 4.3 mg/dL (2.3-6.6)
--- NOTE | 2023-01-04 22:20 | PROVIDER PROGRESS NOTE ---
Labor Progress Note - Uterine Monitoring Uterine Monitoring Mode: positive: External toco Contraction Frequency (min/apart): q4 min Contraction Intensity: positive: Mild to moderate Uterine Resting Tone: positive: Soft - Monitoring Monitor Mode: positive: External ultrasound Heart Rate Variability: positive: Moderate (6-25 bmp) Accelerations: positive: Present, 15x15 Decelerations: positive: None Strip Review: positive: Category I - Vaginal Exam Dilation (in cm): 3.5 Effacement (%): 80 Station: -2 Cervical Position: Midposition - Labor Progress Note Labor Progress Note/Additional Text: more regular contractions. still not too uncomfortable. really does not want pitocin. no headache. bps - a few have been elevated but mostly around 140/90 and stable. labs repeated and very normal. at this time I feel she is too early in her labor for arom. carmen too much for miso #6. will just let her sleep until morning and reassess then unless something changes. patient and her mom seem fine wiht this plan. declines a sleeping pill
[2023-01-05] MEDS: miSOPROStoL 100 MCG TABLET BC SCH (01:16)
[2023-01-05] MEDS ORDERED: OXYTOCIN/SODIUM CHLORIDE 500 ML IV SCH (09:15)
[2023-01-05] MEDS: LACTATED RINGERS 1,000 ML IV SCH ×2 (09:23→19:53)
--- NOTE | 2023-01-05 12:01 | PROVIDER PROGRESS NOTE ---
Labor Progress Note - Uterine Monitoring Contraction Frequency (min/apart): q 4 Contraction Intensity: positive: Mild to moderate Uterine Resting Tone: positive: Soft - Monitoring Monitor Mode: positive: External ultrasound Heart Rate Variability: positive: Moderate (6-25 bmp) Accelerations: positive: Present, 15x15 Decelerations: positive: None Strip Review: positive: Category I - Labor Progress Note Labor Progress Note/Additional Text: agreed to start pitocin this am. now at 8 mu/min and patient feels no different than she did last night. she has had miso x 6. last about 1 am. bps have rarely been elevated over 140. no headache. will continue increase pitocin until she starts to get more uncomfortable and then arom and maybe then I can dial pitocin back.
--- NOTE | 2023-01-05 14:15 | PROVIDER PROGRESS NOTE ---
Labor Progress Note - Uterine Monitoring Contraction Frequency (min/apart): irreg Contraction Intensity: positive: Mild Uterine Resting Tone: positive: Soft - Monitoring Monitor Mode: positive: External ultrasound Heart Rate Variability: positive: Moderate (6-25 bmp) Accelerations: positive: Present, 15x15 Decelerations: positive: None Strip Review: positive: Category I - Vaginal Exam Dilation (in cm): 4 Effacement (%): 80 Station: -2 Cervical Position: Midposition - Labor Progress Note Labor Progress Note/Additional Text: not really uncomfortable with contractions yet. pit at 12. i don't think AROM at this time is the best idea. I woudl like her to be a bit further along. bps are good and she has no PIH sx. plan: recheck at 6
--- NOTE | 2023-01-05 18:06 | PROVIDER PROGRESS NOTE ---
Labor Progress Note - Uterine Monitoring Contraction Frequency (min/apart): 2-3 Contraction Intensity: positive: Moderate Uterine Resting Tone: positive: Soft - Monitoring Monitor Mode: positive: External ultrasound Heart Rate Variability: positive: Moderate (6-25 bmp) Accelerations: positive: Present, 15x15 Decelerations: positive: Variable Strip Review: positive: Category II (one variable right now. this is first i have seen.) - Vaginal Exam Dilation (in cm): 4.5 Effacement (%): 80 Station: -1 Cervical Position: Midposition, Anterior - Labor Progress Note Labor Progress Note/Additional Text: AROM done and clear fluid. more uncomfortable and then first contraction after AROM much more uncomfortable. pitocin 16 - >> 10 mu. baby much lower. hope for more significant cervical change and later today. patient does not want epidural.
--- NOTE | 2023-01-05 18:19 | PROVIDER PROGRESS NOTE ---
Subjective - Subjective Subjective: 4 minute decel. she was on toilet when it started just after AROM. lots of pressure. back in bed and baby back to 130 baseline. pitocin off. contractions are very painful and she has transitioned into labor now. Objective - Vital Signs/Intake & Output Intake & Output: Intake & Output 01/03/23 01/03/23 01/04/23 01/05/23 00:59 23:59 23:59 23:59 Intake Total 69.367 Balance 69.367 - Lab Results Fish Bones: 01/04/23 21:45 01/04/23 21:45 Other Labs: Lab Results x24hrs 01/04/23 01/04/23 Range/Units 21:45 21:45 WBC 10.9 H (4.8-10.8) x10^3/uL RBC 4.09 L (4.20-5.40) 10^6/uL Hgb 10.0 L (12.0-16.0) g/dL Hct 32.0 L (37.0-47.0) % MCV 78.2 L (81.0-99.0) fL MCH 24.4 L (27.0-31.0) pg MCHC 31.3 L (32.0-36.0) g/dL RDW 15.3 H (12.0-15.0) % Plt Count 236 (130-450) 10^3/uL MPV 11.0 H (7.9-10.8) fL Creatinine 0.6 (0.6-1.3) mg/dL Estimated GFR (MDRD) 153 (>89) Uric Acid 4.3 (2.3-6.6) mg/dL AST 11 (10-42) IU/L
--- NOTE | 2023-01-05 21:39 | PROVIDER PROGRESS NOTE ---
Labor Progress Note - Uterine Monitoring Contraction Frequency (min/apart): 1.5-2 Contraction Intensity: positive: Moderate Uterine Resting Tone: positive: Soft - Monitoring Monitor Mode: positive: External ultrasound Heart Rate Variability: positive: Moderate (6-25 bmp) Accelerations: positive: Present, 15x15 Decelerations: positive: Variable Strip Review: positive: Category I - Vaginal Exam Dilation (in cm): 6 Effacement (%): 100 Station: 0 Cervical Position: Anterior (very soft) - Labor Progress Note Labor Progress Note/Additional Text: tired, feeling pressure to push on and off. very focused. really doing great. going to walk a bit now. still laboring without any further pitocin. bps are <140/90 anticipate later this evening.
--- NOTE | 2023-01-06 00:32 | DELIVERY NOTE ---
Delivery Note - Labor Labor: positive: Induced by oxytocin - Infant Delivery Method Delivery Method: positive: Spontaneous vaginal delivery - Cervical Ripening Method Cervical Ripening Method: positive: Misoprostil (x 6) - Presentation Presentation: positive: Vertex, REYNOLD - left occiput anterior - Nuchal Cord Nuchal Cord: positive: None - Anesthetic Anesthetic Type: - Amniotic Fluid Description Amniotic Fluid Description: positive: Clear - Episiotomy Type Episiotomy Type: positive: None - Laceration Laceration: positive: None - Delivery Outcome Delivery Outcome: positive: Livebirth - Carney: positive: Placed in direct skin contact with mother sex: positive: Male - Cord Cord: positive: 3 vessels - Placenta Placenta: positive: Intact - Estimated Blood Loss Estimated Blood Loss (in cc): 1,300 - Post Delivery Events Post Delivery Events: positive: Hemorrhage (at about 10 minutes) - Delivery Comments (Free Text/Narrative) Delivery Comments (Free Text/Narrative): Patient's labor was induced due to htn. she made it through labor without preE sx or further bp exacerabations. labs were normal. she recieved miso x 4 then we discussed pitocin. she was 3 cm. she did not want pitocin yet. I felt she was too early for AROM. so miso was given again. then it came to night time and she received one more over night. The morning of 01/05 pitocin was started. we got up to 16 mu and she was still barely carmen. but she was 4 cm and 80% effaced and baby was -1 station. AROM was done with clear fluid. her contractions really took off after that. she had one 4 minute decel. pitocin, which had been turned down, was turned off and never needed again during her labor. She did not want epidural. She used nitrous for pain management for a while and then just coped incredibly well. Her and mother were fabulous support for her and never left her side. Once she was complete, we readied for delivery. During pushing it was hard to monitor baby, mom kept getting on the monitor. RN was hand holding monitor and woudl sisal picker baby at 120s sporadically. no decels were ever heard. Her , Prashanth, wanted to help deliver the baby and Bre was OK with that. He sat with me while she pushed with gloves on. Once the baby was , Prashanth helped to deliver the shoulders and bring their son up to mom's belly. Baby was vigorous from time of . After over a minute, cord was clamped and cut by Prashanth. Placenta delivered at about 4 or 5 minutes. intact. pitocin was not started for a few minutes and in that time, the uterus relaxed and bled heavily. We did uterine massage. I swept the lower uterine segment and there was no tissue left. The uterus contracted as the pitocin was started and bleeding slowed to normal. there was about 1300 cc in the bag. no other meds were needed. the perineum, vulva, and vagina was examined and there were no lacerations. Patient was stable.
[2023-01-06] MEDS ORDERED: LACTATED RINGERS 1,000 ML IV SCH (01:00)
[2023-01-06] MEDS: IBUPROFEN 600 MG TABLET PO PRN ×5 (01:01→22:26)
[2023-01-06] MEDS: ACETAMINOPHEN 500 MG TABLET PO PRN ×3 (01:02→16:32)
[2023-01-06] MEDS ORDERED: IRON DEXTRAN 1,500 MG in SODIUM CHLORIDE 0.9% 500 ML IV ONE (08:14)
[2023-01-06 08:21] LABS: BASOPHILS % (AUTO) 0.2 %; HCT - HEMATOCRIT 27.6 % (37.0-47.0); HGB - HEMOGLOBIN 8.6 g/dL (12.0-16.0); LYMPHOCYTES # (AUTO) 1.9 10^3/uL (1.5-3.5); LYMPHOCYTES % (AUTO) 9.6 %; MEAN CORPUSCULAR HEMOGLOBIN 24.6 pg (27.0-31.0); MEAN CORPUSCULAR HGB CONC 31.2 g/dL (32.0-36.0); MEAN CORPUSCULAR VOLUME 79.1 fL (81.0-99.0); MEAN PLATELET VOLUME 11.1 fL (7.9-10.8); NEUTROPHILS % (AUTO) 79.6 %; PLT - PLATELET COUNT 246 10^3/uL (130-450); RED BLOOD COUNT 3.49 10^6/uL (4.20-5.40); RED CELL DISTRIBUTION WIDTH 15.6 % (12.0-15.0); WHITE BLOOD COUNT 20.1 x10^3/uL (4.8-10.8)
[2023-01-06 08:24] LABS: SLIDE REVIEW? Indicated
[2023-01-06 09:00] LABS: PLATELET ESTIMATE, MANUAL NORMAL (130-450,000) (NORMAL); PLATELET MORPHOLOGY NORMAL APPEARANCE (NORMAL); RBC MORPHOLOGY (MULTIPLE) 1+ ANISOCYTOSIS (NORMAL); WBC MORPHOLOGY (MULTIPLE) NORMAL APPEARANCE (NORMAL)
[2023-01-06] MEDS ORDERED: oxyCODONE 5 MG TABLET PO PRN (11:24)
[2023-01-06 16:33] LABS: BASOPHILS % (AUTO) 0.4 %; EOSINOPHILS % (AUTO) 0.3 %; HCT - HEMATOCRIT 26.8 % (37.0-47.0); HGB - HEMOGLOBIN 8.3 g/dL (12.0-16.0); LYMPHOCYTES % (AUTO) 18.1 %; MEAN CORPUSCULAR HEMOGLOBIN 24.6 pg (27.0-31.0); MEAN CORPUSCULAR VOLUME 79.5 fL (81.0-99.0); MONOCYTES % (AUTO) 11.5 %; NEUTROPHILS % (AUTO) 69.2 %; PLT - PLATELET COUNT 220 10^3/uL (130-450); RED BLOOD COUNT 3.37 10^6/uL (4.20-5.40); RED CELL DISTRIBUTION WIDTH 15.6 % (12.0-15.0); WHITE BLOOD COUNT 16.9 x10^3/uL (4.8-10.8)
[2023-01-06 17:31] LABS: PLATELET ESTIMATE, MANUAL NORMAL (130-450,000) (NORMAL); PLATELET MORPHOLOGY NORMAL APPEARANCE (NORMAL); RBC MORPHOLOGY (MULTIPLE) NORMAL APPEARANCE (NORMAL)
--- NOTE | 2023-01-06 19:29 | PROVIDER PROGRESS NOTE ---
Subjective - Subjective Pt reports feeling: Improved Subjective: ppd 1 s/p unmedicated vaginal delivery induced for HTN. c/b pp hemorrhage from atony that was short term. bps have been stable. no headache. no dizziness. feeling quite well but her bum hurts. breast feeding. some uterine cramps. VSS abdomen soft. extemities with minimal edema. labs: hct stable at 27%, better than I thought. WBC 20 -> 16 with no bands. A/P ppd #1 s.p vag del with elevated bps. no sx from anemia. iv iron given. no elevated bps. will watch until tomorrow. elevated wbc but no bands. likely just stress. no other signs of infection. doing great. discharge tomorrow. Objective - Vital Signs/Intake & Output Vital Signs: Vital Signs x48h Temp Pulse Resp BP Pulse Ox 01/06/23 12:23 99.2 F 106 H 16 134/74 H 100 Intake & Output: Intake & Output 01/03/23 01/04/23 01/05/23 01/06/23 23:59 23:59 23:59 23:59 Intake Total 4607.605 2348.717 Balance 9640.448 1460.717 - Lab Results Fish Bones: 01/06/23 16:28 01/04/23 21:45 Other Labs: Lab Results x24hrs 01/06/23 01/06/23 Range/Units 16:28 08:15 WBC 16.9 H 20.1 H (4.8-10.8) x10^3/uL RBC 3.37 L 3.49 L (4.20-5.40) 10^6/uL Hgb 8.3 L 8.6 L (12.0-16.0) g/dL Hct 26.8 L 27.6 L (37.0-47.0) % MCV 79.5 L 79.1 L (81.0-99.0) fL MCH 24.6 L 24.6 L (27.0-31.0) pg MCHC 31.0 L 31.2 L (32.0-36.0) g/dL RDW 15.6 H 15.6 H (12.0-15.0) % Plt Count 220 246 (130-450) 10^3/uL MPV 11.0 H 11.1 H (7.9-10.8) fL Neut # (Auto) EYELET CUTTER 16.0 H (1.5-6.6) 10^3/uL Lymph # (Auto) EYELET CUTTER 1.9 (1.5-3.5) 10^3/uL Hawkins # (Auto) EYELET CUTTER 2.0 H (0.0-1.0) 10^3/uL Eos # (Auto) EYELET CUTTER 0.0 (0.0-0.7) 10^3/uL Baso # (Auto) EYELET CUTTER 0.0 (0.0-0.1) 10^3/uL Absolute Nucleated RBC EYELET CUTTER 0.00 x10^3/uL Total Counted EYELET CUTTER Band Neuts % (Manual) EYELET CUTTER Abnorm Lymph % (Manual) EYELET CUTTER Nucleated RBC % EYELET CUTTER 0.0 /100WBC Neutrophils # (Manual) EYELET CUTTER Lymphocytes # (Manual) EYELET CUTTER Monocytes # (Manual) EYELET CUTTER Eosinophils # (Manual) EYELET CUTTER Basophils # (Manual) EYELET CUTTER Manual Slide Review Indicated WBC Morphology NORMAL APPEARANCE (NORMAL) Platelet Estimate NORMAL (130-450,000) NORMAL (130-450,000) (NORMAL) Platelet Morphology NORMAL APPEARANCE NORMAL APPEARANCE (NORMAL) RBC Morph Micro Appear NORMAL APPEARANCE 1+ ANISOCYTOSIS (NORMAL)
[2023-01-07] MEDS: ACETAMINOPHEN 500 MG TABLET PO PRN ×2 (00:22→08:28)
[2023-01-07] MEDS: IBUPROFEN 600 MG TABLET PO PRN ×2 (05:28→11:38)
[2023-01-07 10:15] VITALS: BP 133/74
--- NOTE | 2023-01-07 12:57 | DISCHARGE SUMMARY ---
"Discharge Summary Admit Date: 01/04/23 Discharge Date: 01/07/23 Discharging Provider: zach Primary Care Provider: lucas Tellez Status: Attempt Resuscitation Condition at Discharge: Good Discharge Disposition: 01 Home, Self Care - DIAGNOSES Admission Diagnoses: gestational HTN IUP @ 37 weeks anemia. Discharge Diagnoses with Status of Each Condition: gestational HTN, resolved IUP @ 37 weeks, resolved anemia, s/p IV iron, asymptomatic . - HPI History of Present Illness: pt doing well, pain controlled, lochia appropriate, , + void, + flat, + ambulation ready to D/C home precautions and instructions reviewed all questions answered. discharge precautions and instructions reviewed BP stable. - CONSULTS | PROCEDURES Procedures: IOL post- care and support. - HOSPITAL COURSE Hospital Course: admitted after 24h observation for labile BP IOL at 37w with miso and pitocin routine PP care + IV iron - ALLERGIES Allergies/Adverse Reactions: Allergies Allergy/AdvReac Type Severity Reaction Status Date / Time No Known Drug Allergies Allergy Verified 10/02/22 12:46 - MEDICATIONS Home Medications: Ambulatory Orders Medication Instructions Recorded Confirmed No Known Home Medications 10/02/22 10/02/22 - PHYSICAL EXAM AT DISCHARGE General Appearance: positive: No acute distress Eyes Bilateral: positive: Normal inspection ENT: positive: ENT inspection nml Neck: positive: Nml inspection Respiratory: positive: Chest non-tender, No respiratory distress, Breath sounds nml Cardiovascular: positive: Regular rate & rhythm, No murmur, No gallop Abdomen: positive: Non-tender, No distention, Other (uterus firm below ) Skin: positive: Color nml, No rash, Warm, Dry Extremities: positive: Non-tender Neurologic/Psychiatric: positive: Oriented x3 - LABS Result Diagrams: 01/06/23 16:28 01/04/23 21:45 - QUALITY (Female Hip Fx Only) Was patient sent home on osteoporosis medication?: No - FOLLOW UP Follow Up: [facility] - TIME SPENT Time Spent in Discharge (Minutes): 20"
--- NOTE | 2023-01-07 13:16 | Discharge Plan ---
Discharge Plan Problem Reviewed?: Yes Disposition: Home, Self Care Condition: Good Diet: Regular Activity Restrictions: No Restrictions Shower Restrictions: No Driving Restrictions: No Weight Bearing: Full Weight Instruction Topics: Vaginal After, Depression , Childbirth Breast Care Health Concerns: routine PP care anemia Plan of Treatment: D/C home f/u with scheduled care Assessment: stable, doing well all post milestones met asymptomatic with anemia No Smoking: If you smoke, Please STOP! Call for help. Follow-up with: SAMAN VAUGHN DO [Primary Care Provider] - Pasha Szymanski MD [Provider Admit Priv/Credential] -
--- NOTE | 2023-01-07 15:15 | Labor Flowsheet ---
Labor Flowsheet Datetime Report Generated by CPN: 01/07/2023 15:14 Datetime: 01/07/2023 08:59 VITAL SIGNS NBP Sys/Ofelia/Mean (mmHg): 133 : 74 : 86 Pulse: 90 SpO2 (%): 100 Datetime: 01/06/2023 00:30 Stage of : Datetime: 01/06/2023 00:26 MEDICATIONS Pitocin (milliunits): Discontinued Medication Comments: PP pit bolus completed Datetime: 01/06/2023 00:15 PAIN Pain Scale: 6 Pain Presence: Intermittent Pain Type: Burning Pain Location: Perineum Pain Relief Measures: Comfort Measures LaborFlag: Labor Datetime: 01/05/2023 23:49 Stage 2 Comments: delivery of head Datetime: 01/05/2023 23:46 Pushing Position: Pushing with Contractions Datetime: 01/05/2023 23:45 UTERINE ACTIVITY Monitor Mode: External Frequency (min): 2-2.5 Quality: Strong Duration (sec): 60-110 Resting Tone (Palpate): Relaxed FHR Baseline Rate : 135 Category: Category II Comments: pt pushing RN at bedside. Indeterm tracing Datetime: 01/05/2023 23:40 STAGE 2 Pushing: Coached on Pushing Datetime: 01/05/2023 23:30 Pushing Progress: Pushing Effectively with Contractions Datetime: 01/05/2023 23:22 Provider Reviewed Strip: Yes Provider Notified (Name): Dr. Sawyer Communication Comments: MD here for delivery Datetime: 01/05/2023 23:20 VAGINAL EXAM Dilatation (cm): 10.0 Effacement (%): 100 Station: 1 Exam by: camila Varner RN Notification Reason: Status Update Datetime: 01/05/2023 23:15 ASSESSMENT A Monitor Mode: External US Variability: Moderate 6-25 bpm Decelerations: Variable Datetime: 01/05/2023 23:01 Patient Position/Activity: Semi-Fowlers Datetime: 01/05/2023 23:00 Accelerations: None Datetime: 01/05/2023 22:59 Patient Care Comments: pt in tub Datetime: 01/05/2023 22:38 COMMUNICATION Communication: RN at Bedside Datetime: 01/05/2023 22:21 Vaginal Exam Comments: Pt feels urge to push Datetime: 01/05/2023 22:15 Pattern: Normal: <= 5 Contractions in 10 Minutes Datetime: 01/05/2023 22:06 Respirations: 20 Temperature (C): 37.1 Temperature Route: Oral Datetime: 01/05/2023 21:30 Monitor Interventions for UA: [place] Adjusted Datetime: 01/05/2023 21:00 Pain Coping: Breathing Through Contractions; Declines Medication or Epidural Comfort Measures: Breathing/Relaxation; Coaching; Family Support Datetime: 01/05/2023 19:30 Monitor Interventions for FHR: Ultrasound Adjusted Datetime: 01/05/2023 19:00 Contraction Comments: unable to trace contractions due to position Datetime: 01/05/2023 18:08 Actions for Decelerations: Provider Notified Datetime: 01/05/2023 17:57 Membrane Status: Ruptured Membranes Rupture Method: Artificial Amniotic Fluid Color: Clear Amniotic Fluid Amount: Moderate Amniotic Fluid Odor: Normal Datetime: 01/05/2023 10:30 Pitocin Checklist: At Least 1 Acceleration of 15 bpm x 15 Seconds in 30 Minutes or Adequate Variabi lity; No More than 1 Late Deceleration Occurred in Past 30 Minutes; No More than 2 Variable Decelerat ions > 60 Seconds in Duration and decreasing >60 bpm in 30 minutes; No More than 5 Uterine Contractio ns in 10 Minutes for any 20 Minute Interval; Uterus Palpates Soft between Contractions Datetime: 01/05/2023 09:59 FHR Baseline Changes: No Baseline Change Datetime: 01/05/2023 05:20 Pain Goal: 10 Datetime: 01/05/2023 01:16 Cervical Ripening Agents: Cytotec @ Datetime: 01/05/2023 00:44 I/O Interventions: Up to BR Datetime: 01/04/2023 08:30 Insulin: cytotec 25 mcg Datetime: 01/04/2023 00:31 Vaginal Bleeding: None Cervix, Consistency: Moderate Cervix, Position: Posterior Datetime: 01/04/2023 00:00 MATERNAL ASSESSMENT Level of Consciousness: Alert Headache: Denies Breath Sounds, Left: Clear and Equal Breath Sounds, Right: Clear and Equal Nausea/Vomiting: Denies RUQ Epigastric Pain: Denies Datetime: 01/03/2023 23:57 PATIENT CARE IV/Blood Work: IV Started; Labs Drawn with IV Start Datetime: 12/16/2022 18:32 Membranes Ruptured Date/Time: 01/05/2023 17:55
== END 2023-01-07 14:00 | disposition home or self-care (01) | DRG 807 ==
LOC: WFO 17:39 → FBP 17:42 → WFO 23:16 → OBSVTOIN 01-03 13:59
PROVIDERS: ADMIT Obstetrics & Gynecology; ATTEND Obstetrics & Gynecology
PROC: 3E0DXGC Introduction of Other Therapeutic Substance into Mouth and Pharynx, External Approach (ICD-10-PCS; 2023-01-03)
PROC: 10907ZC Drainage of Amniotic Fluid, Therapeutic from Products of Conception, Via Natural or Artificial Opening (ICD-10-PCS; principal; 2023-01-05)
PROC: 10E0XZZ Delivery of Products of Conception, External Approach (ICD-10-PCS; 2023-01-05)
PROC: 3E033VJ Introduction of Other Hormone into Peripheral Vein, Percutaneous Approach (ICD-10-PCS; 2023-01-05)
DX: O13.4 Gestational [pregnancy-induced] hypertension without significant proteinuria, complicating childbirth (principal); Z37.0 Single live birth; O76 Abnormality in fetal heart rate and rhythm complicating labor and delivery; O99.02 Anemia complicating childbirth; Z3A.37 37 weeks gestation of pregnancy; O72.1 Other immediate postpartum hemorrhage
CPT/HCPCS: 36415; 59025; 59409; 80053; 82565; 82570; 84156; 84450; 84550; 85025; 85027; 86850; 86900; 86901; 99215; A9270; G0378; J1750; J7120